=== PATIENT | female | born 2000 ===

== ENCOUNTER 2019-01-05 15:56 | Emergency (ER) | payer OTHER ==
[2019-01-05 16:15] VITALS: BP 119/77
--- NOTE | 2019-01-05 16:20 | UC ---
Head Injury HPI - HPI Summary HPI Summary: 18 yo female presents with head injury. She tells me that this morning she went to jump into her bed and hit the back of her head against the wall. [place] dazed for a few seconds, but no LOC. She went to class following this and noticed that focusing caused her to have a headache and feel nauseous. Texting and looking at her computer screen also caused these symptoms as well as some light sensitivity. She has not taken anything OTC for her symptoms. Denies SOB, chest pain, abdominal pain, vomiting. - History Of Current Complaint Chief Complaint: UCHeadInjury Stated Complaint: HEAD INJURY Time Seen by Provider: 01/05/19 16:20 Hx Obtained From: Patient Hx Last Menstrual Period: ON CONTROL Onset/Duration: Sudden Onset Severity Currently: Moderate Severity Initially: Moderate Pain Intensity: 4 Pain Scale Used: 0-10 Numeric - Allergies/Home Medications Allergies/Adverse Reactions: Allergies Allergy/AdvReac Type Severity Reaction Status Date / Time No Known Allergies Allergy Verified 01/05/19 16:15 Home Medications: Home Medications Control* 01/05/19 [History] Escitalopram * [Lexapro 10 mg (NF)] 10 mg PO DAILY 01/05/19 [History Confirmed 01/05/19] PMH/Surg Hx/FS Hx/Imm Hx Psychological History: Anxiety, Depression - Surgical History Surgical History: Yes Surgery Procedure, Year, and Place: HEAD SURGERY - Family History Known Family History: Positive: None - Social History Occupation: Student Lives: Dormitory/Roommates Alcohol Use: Occasionally Substance Use Type: None Smoking Status (MU): Never Smoked Tobacco Review of Systems All Other Systems Reviewed And Are Negative: Yes Constitutional: Positive: Negative Skin: Positive: Negative Respiratory: Positive: Negative Cardiovascular: Positive: Negative Gastrointestinal: Positive: Nausea Genitourinary: Positive: Negative Neurovascular: Positive: Negative Musculoskeletal: Positive: Negative Neurological: Positive: Headache, Other - Dizziness Physical Exam - Summary Physical Exam Summary: GENERAL: NAD. WDWN. No pain distress. SKIN: No rashes, sores, ulcers, masses, lesions. HEENT: Head: AT/NC. No raccoon eyes or battles sign. Eyes: PERRLA. EOM intact. Conjunctiva clear without inflammation or discharge. Ears: Hearing grossly normal. TMs intact, no bulging, erythema, or edema. No hemotympanum Nose: Nasal mucosa pink and moist. NTTP maxillary and frontal sinus. Throat: Posterior oropharynx without exudates, erythema, or tonsillar enlargement. Uvula midline. NECK: Supple. Nontender. FROM CHEST: CTAB. No r/r/w. No accessory muscle use. Breathing comfortably and in no distress. CV: RRR. Without m/r/g. Pulses intact. Brisk cap refill. MSK: FROM in B/L UEs and LEs with symmetric strength. NEURO: A&Ox3. 3 word recall, remote, recent memory, ability to follow 2-step directions, and attention intact. CN: II: Peripheral minor intact. Vision normal. III, IV, : EOMI. No nystagmus. PERRLA. V: Sensations intact and symmetric. Opens mouth and clenches teeth. VII: No facial asymmetry. Forehead wrinkles. Grins, shuts eyes, frowns, puffs cheeks. VIII: Hearing intact to finger rub. IX, X: Swallows and coughs. Uvula midline. XI: Shrugs shoulders. Turns head against resistance. XII: No tongue deviation Prurir-bi-ybic are intact. Gait with normal base. Romberg: maintains balance, no pronator drift. Normal speech. No facial drooping. PSYCH: Age appropriate behavior. Triage Information Reviewed: Yes Vital Signs: Initial Vital Signs Temp 97.4 F 01/05/19 16:10 Pulse 67 01/05/19 16:10 Resp 16 01/05/19 16:10 BP 119/77 01/05/19 16:10 Pulse Ox 100 01/05/19 16:10 Vital Signs Reviewed: Yes Head Injury Course/Dx - Course Course Of Treatment: Given pt's symptoms it is possible she sustained a mild concussion. Her neuro exam is WNL and this was a low impact injury, thus will hold off on CT of the head for now - but encouraged pt to be rechecked if her symptoms worsen or if she has new symptoms. Advised to try tylenol/ibuprofen for her discomfort and avoid/limit activities that worsen her symptoms such as physical activities, screens, and classwork. - Differential Dx/Diagnosis Provider Diagnosis: Head injury, Nausea Discharge - Sign-Out/Discharge Documenting (check all that apply): Patient Departure All imaging exams completed and their final reports reviewed: No Studies - Discharge Plan Condition: Stable Disposition: HOME Patient Education Materials: Concussion (ED), Head Injury (ED) Forms: *School Release Referrals: [facility], [facility] [Primary Care Provider] - Additional Instructions: If you develop a fever, shortness of breath, chest pain, new or worsening symptoms - please call your PCP or go to the ED immediately. 1) Rest and avoid strenuous activities and computer screens/cell phones/ipads as much as possible as these may make your symptoms worse 2) May take tylenol or ibuprofen as directed for discomfort - Billing Disposition and Condition Condition: STABLE Disposition: Home
== END 2019-01-05 16:36 | disposition home or self-care (01) ==
LOC: UCEAST 15:56
DX: S09.90XA Unspecified injury of head, initial encounter (principal); W22.09XA Striking against other stationary object, initial encounter; Y92.003 Bedroom of unspecified non-institutional (private) residence as the place of occurrence of the external cause; R11.0 Nausea; F41.9 Anxiety disorder, unspecified; F32.9 Major depressive disorder, single episode, unspecified
CPT/HCPCS: 99201; G0463